=== PATIENT | female | born 1960 | race Caucasian/White ===

== ENCOUNTER → 2021-07-15 | Outpatient (CLI) | payer SELFPAY ==
[~2021-07-15] MED LIST: Doxycycline Mo100 M1; IVERMECTIN3 MG; Prednisone10 MG
[2021-07-15 14:43] LABS: BASOPHILS ABSOLUTE AUTO 0.01 K/mm3 (0.00-0.23); BASOPHILS PERCENT AUTO 0 % (0-2); EOSINOPHILS PERCENT AUTO 0 % (0-6); Hematocrit 42.1 % (33.0-51.0); Hemoglobin 14.5 g/dL (11.5-16.0); IMMATURE GRAN ABSOLUTE AUTO 0.02 K/mm3 (0.00-0.10); IMMATURE GRAN PERCENT AUTO 0 % (0-1); LYMPHOCYTES ABSOLUTE AUTO 1.66 K/mm3 (0.84-5.20); LYMPHOCYTES PERCENT AUTO 30 % (21-46); MONOCYTES ABSOLUTE AUTO 0.53 K/mm3 (0.16-1.47); MONOCYTES PERCENT AUTO 9 % (4-13); Mean Corpuscular HGB 28.8 pg (26.0-34.0); Mean Corpuscular HGB Conc 34.4 g/dL (31.5-36.5); Mean Corpuscular Volume 84 fL (80-100); Mean Platelet Volume 10.2 fL (9.1-12.4); NEUTROPHILS ABSOLUTE AUTO 3.39 K/mm3 (1.96-9.15); NEUTROPHILS PERCENT AUTO 60 % (41-73); Platelet Count 180 K/mm3 (150-400); RDW Coefficient Variation 13.9 % (11.7-14.2); RDW Standard Deviation 42.1 fL (35.1-46.3); Red Blood Cell Count 5.03 M/mm3 (3.80-5.20); White Blood Cell Count 5.61 K/mm3 (4.00-11.30)
[2021-07-15 14:52] LABS: Albumin, Blood 3.9 g/dL (3.4-5.0); Bilirubin, Total 0.4 mg/dL (0.1-1.0); Bun/Creatinine Ratio 16.7 (12.0-20.0); Calcium, Blood 8.6 mg/dL (8.5-10.1); Creatinine, Blood 0.96 mg/dL (0.40-1.00); Total Protein, Blood 7.9 g/dL (6.4-8.2)
== END | disposition home or self-care (01) ==
LOC: LAB SHORT 14:37
PROVIDERS: General Practice
DX: U07.1 COVID-19 (principal)
CPT/HCPCS: 80053; 85025; 85379

== ENCOUNTER 2021-07-16 15:44 | Emergency (ER) | payer SELFPAY ==
[~2021-07-16] VITALS: Ht 167.6 cm; Wt 90.7 kg
[2021-07-17] MEDS ORDERED: Prednisone10 MG (09:12)
[2021-07-17] MEDS ORDERED: Doxycycline Mo100 M1 (09:13)
[2021-07-17] MEDS ORDERED: IVERMECTIN3 MG (09:13)
== END 2021-07-16 19:00 | disposition home or self-care (01) ==
LOC: ER 15:44
DX: U07.1 COVID-19 (principal)
CPT/HCPCS: 99282-25; M0243; Q0243

== ENCOUNTER → 2025-07-14 | Outpatient (CLI) | payer OTHER ==
[2025-07-14 13:26] LABS: Anion Gap 12.0 mmol/L (3-11); Blood Urea Nitrogen 41.0 mg/dL (8-24); CO2, Blood 23.0 mmol/L (21-32); Calcium, Blood 9.2 mg/dL (8.5-10.1); Chloride, Blood 106.0 mmol/L (98-108); Creatinine, Blood 1.15 mg/dL (0.40-1.00); Glucose, Blood 75.0 mg/dL (70-99); Potassium, Blood 4.5 mmol/L (3.5-5.5); Sodium, Blood 136.0 mmol/L (136-145)
== END ==
LOC: LAB SHORT 09:45 → LAB 09:45
PROVIDERS: Internal Medicine Cardiovascular Disease
DX: Z79.899 Other long term (current) drug therapy (principal)
CPT/HCPCS: 80048